=== PATIENT | female | born 2000 | race Caucasian/White ===

== ENCOUNTER 2018-05-07 17:09 | Emergency (ER) | payer SELFPAY ==
--- NOTE | 2018-05-07 17:18 | NUR ---
NO ANSWER IN ER LOBBY
== END 2018-05-07 17:18 | disposition left against medical advice (07) ==
LOC: MED 17:09
DX: Z53.21 Procedure and treatment not carried out due to patient leaving prior to being seen by health care provider (principal)

== ENCOUNTER 2019-06-24 00:24 | Emergency (ER) | payer OTHER ==
[~2019-06-24] VITALS: Ht 167.6 cm; Wt 79.4 kg
[2019-06-24 00:34] VITALS: BP 128/78
--- NOTE | 2019-06-24 00:40 | NUR ---
PT AMBULATED TO RESTROOM TO PROVIDE URINE SAMPLE
--- NOTE | 2019-06-24 01:00 | NUR ---
18 Y/O FEMALE PRESENTS TO ED, C/O SYCOPAL EPISODE. PT STATES FEELING DIZZY AND FAINTING 1 HOUR PRIOR TO ARRIVAL AT ED; PT HIT HEAD ON METAL POLE IN HER ROOM. NO DEFORMITY ON HEAD NOTED. PT DENIES ANY ALCOHOL USE. PT ENDORSED SMOKING "LESS THAN" ONE GRAM OF MARIJUANA. PT HAS NAUSEA BUT NO VOMITING. PT DENIES ANY CHEST PAIN OR SOB. PT AT STABLE CONDITION. ERMD AWARE. WILL CONTINUE TO MONITOR.
--- NOTE | 2019-06-24 01:07 | NUR ---
Dr. Beavers examining patient.
[2019-06-24 01:17] VITALS: BP 128/78
--- NOTE | 2019-06-24 01:17 | NUR ---
PT DISCHARGED WITH PAPERWORK. NO MEDICATION RX PROVIDED. EDUCATED PT REGARDING D/C DIAGNOSIS AND INSTRUCTIONS. PT VERBALIZED UNDERSTANDING OF TEACHING. TOLD PT TO FOLLOW UP WITH PCP AND WHEN TO RETURN TO ED. PT AT STABLE CONDITION. ABLE TO AMBULATE WITH SLOW STEADY GAIT. ALL QUESTIONS ANSWERED.
== END 2019-06-24 01:17 | disposition home or self-care (01) ==
LOC: MED 00:24
DX: R55 Syncope and collapse (principal); F12.90 Cannabis use, unspecified, uncomplicated
CPT/HCPCS: 93005; 99283